=== PATIENT | female | born 1970 | race Caucasian/White ===

== ENCOUNTER 2016-10-12 06:32 | Day surgery (SDC) | payer BC ==
[2016-10-06 20:01] LABS: BASOPHILS 0.5 %; BASOPHILS ABSOLUTE 0.04 10/3/uL (0.0-0.16); EOSINOPHILS 1.5 %; EOSINOPHILS ABSOLUTE 0.12 10/3/uL (0.0-0.53); HEMATOCRIT 40.8 % (36.0-48.0); HEMOGLOBIN 13.8 g/dL (12.0-16.0); IMMATURE GRANULOCYTES 0.6 %; IMMATURE GRANULOCYTES ABSOLUTE 0.05 10/3/uL (0.0-0.11); LYMPHOCYTES 25.1 %; LYMPHOCYTES ABSOLUTE 1.98 10/3/uL (0.67-4.30); MANUAL DIFF NO %; MEAN CORPUS HGB CONC 33.8 g/dL (32.0-36.0); MEAN CORPUSCULAR HEMOGLOB 31.8 pg (26.0-34.0); MONOCYTES 6.5 %; MONOCYTES ABSOLUTE 0.51 10/3/uL (0.21-1.20); NEUTROPHILS 65.8 %; NEUTROPHILS ABSOLUTE 5.19 10/3/uL (2.02-8.40); PLATELET COUNT 372 10/3/uL (150-400); RBC DISTRIBUTION WIDTH 12.5 % (12.0-16.0); RED CELL COUNT 4.34 10/6/uL (4.0-5.6); WHITE BLOOD CELLS 7.9 10/3/uL (4.5-10.5)
[2016-10-06 20:04] LABS: BUN (BLOOD UREA NITROGEN) 15 MG/DL (6-23); CALCIUM, SERUM 9.3 MG/DL (8.5-10.4); CHLORIDE, SERUM 104 MMOL/L (96-112); CO2 (CARBON DIOXIDE) 26 MMOL/L (24-34); CREATININE 0.72 MG/DL (0.55-1.02); GFR AFRICAN AMERICAN 117 ML/MIN (>=60); GFR NON AFRICAN AMERICAN 101 ML/MIN (>=60); GLUCOSE, SERUM 89 MG/DL (60-99); POTASSIUM, SERUM 5.1 MMOL/L (3.5-5.3); SODIUM, SERUM 136 MMOL/L (135-148)
[2016-10-06 20:23] LABS: ASCORBIC ACID (UR NOT ORDER) NEG (NEG); BILIRUBIN, URINE NEGATIVE (NEG); KETONE, URINE NEGATIVE (NEG); LEUKOCYTE ESTERASE(NOT OR NEG (NEG); WBC (NOT ORDERED) (RFLEX) < 1 (0-5)
--- NOTE | ~2016-10-12 | OP ---
[facility] Of [facility] [id number] [place]. [address] NAME: RADHA STEWART : 72 STATUS : [facility]#: [id number] AGE: 46 ADM/REG DATE : 10/12/16 MR#: [id number] REPORT SERV DATE: 10/14/16 DICTATED BY: ELIGIO TREVIZO DATE: 10/14/16 REPORT STATUS : Draft TRANSCRIBED BY: MODL DATE: 10/14/16 DATE OF PROCEDURE: 10/12/2016 PREOPERATIVE DIAGNOSES: 1. Abnormal uterine bleeding. 2. Endometrial polyps. POSTOPERATIVE DIAGNOSES: 1. Abnormal uterine bleeding. 2. Endometrial polyps. PROCEDURE: Hysteroscopy with dilation and curettage with polypectomy. CPT code 95859. SURGEON: Eligio Trevizo MD. ANESTHESIA: General. ESTIMATED BLOOD LOSS: 15 mL. CRYSTALLOID: 400 mL. FINDINGS: Large polyp emanating from the right cornual region of the endometrium relatively atrophic endometrium otherwise. PATHOLOGY: 1. Endometrial polyp. 2. Endometrial curettings. COMPLICATIONS: None. POSTOPERATIVE PLAN: Extubated to the PACU. PROCEDURE IN DETAIL: After informed consent was signed, the patient was taken to the operating room, and placed in dorsal supine position, where adequate general anesthesia was administered. She was placed in the dorsal lithotomy position in Jairo stirrups, prepped and draped in the usual fashion. A Schwab catheter was placed. The cervix was dilated, and a hysteroscope was placed through the endocervical canal into the endometrium, and the endometrial cavity was dilated with appropriate media, findings as above were noted. Again, there was a polyp in the right cornual region with a relatively hypoplastic endometrium. The cystoscope was removed. The cervix was dilated further, and using polyp forceps, the polyp was removed in its entirety. Sharp curettings were then performed of the four quadrants of the endometrial cavity. Excellent hemostasis was noted. Bimanual rectovaginal exam did not reveal any masses or nodularities. The patient was placed back in dorsal supine position, awakened, extubated, and sent to the PACU in stable condition. [facility] Of [place] [id number] [place]. [address] NAME: RADHA STEWART : 72 STATUS : [facility]#: [id number] AGE: 46 ADM/REG DATE : 10/12/16 MR#: [id number] REPORT SERV DATE: 10/14/16 DICTATED BY: ELIGIO TREVIZO DATE: 10/14/16 REPORT STATUS : Draft TRANSCRIBED BY: OLIVA DATE: 10/14/16 TB/OLIVA Eligio Trevizo MD / [id number] CC: MD Judy Rivera M.D.
[~2016-10-12 06:32] MED LIST: AUG875 PO; CLARIT10 PO; CYANO1000T PO; FLONASE NAS
== END 2016-10-12 14:21 | disposition home or self-care (01) ==
LOC: SDC 06:32
PROVIDERS: Obstetrics & Gynecology Gynecology
PROC: 0UDB8ZX Extraction of Endometrium, Via Natural or Artificial Opening Endoscopic, Diagnostic (ICD-10-PCS; 2016-10-12)
PROC: 0UB98ZX Excision of Uterus, Via Natural or Artificial Opening Endoscopic, Diagnostic (ICD-10-PCS; principal; 2016-10-12 07:45)
DX: N84.0 Polyp of corpus uteri (principal); G89.29 Other chronic pain; M54.2 Cervicalgia; Z98.890 Other specified postprocedural states; Z80.49 Family history of malignant neoplasm of other genital organs; Z79.2 Long term (current) use of antibiotics; Z79.899 Other long term (current) drug therapy
CPT/HCPCS: 36415; 71020; 80048; 81001; 84703; 85025; 88305; 93005; J0694; J1885; J2250; J2405; J3010